=== PATIENT | male | born 1940 | race Caucasian/White ===

== ENCOUNTER 2017-04-11 10:14 | Emergency (ER) | payer MEDICARE ==
--- NOTE | 2017-04-11 11:42 | ED ---
Upper Extremity Pain - HPI Summary HPI Summary: Patient presents to the ED with CC of left hand swelling and swelling x 1 week. This has occurred before stating he had similar sxs a few months ago and was given prednisone for relief. The swelling dissipated shortly after the initiation of the steroid. He also has a history of PE recently " a few months ago" as well and placed on blood thinners. He discontinued the use of blood thinners several weeks ago stating the blood thinners were more dangerous than the blood clots and prefers not to take them. Associated history includes frostbite 4 years ago in the ipsilateral hand with loss of distal tip of index finger. He is otherwise healthy and denies smoking. He denies SOB, chest pain. He is able to squeeze the hand. Denies numbness, tingling, temperature or color changes to the area. He has attempted to take muscle relaxers without relief. - History of Current Complaint Hx Obtained From: Patient Mechanism Of Injury: Unknown Onset/Duration: Started Weeks Ago Timing: Constant Severity Initially: Moderate Severity Currently: Moderate Pain Location: Hand Character: Aching Aggravating Factor(s): Movement, Lifting, Flexion, Extension Alleviating Factor(s): Nothing Associated Signs & Symptoms: Positive: Swelling - Risk Factors Non-Orthopedic Risk Factor: Negative DVT Risk Factors: Prior PE Septic Arthritis Risk Factor: Negative <Estephania Aldridge - Last Filed: 04/11/17 13:58> <Rachelle Aguilar - Last Filed: 04/13/17 07:56> - History of Current Complaint Chief Complaint: EDExtremityUpper Stated Complaint: LEFT HAND INJURY Time Seen by Provider: 04/11/17 10:50 - Allergies/Home Medications Allergies/Adverse Reactions: Allergies Allergy/AdvReac Type Severity Reaction Status Date / Time AVOIDS ALL "NUTS" Allergy Difficulty Uncoded 06/26/16 18:53 Breathing PMH/Surg Hx/FS Hx/Imm Hx Previously Healthy: Yes Endocrine/Hematology History: Denies: Hx Diabetes Cardiovascular History: Denies: Hx Hypertension Respiratory History: Reports: Other Respiratory Problems/Disorders - DURING WINTER HAD DIFFICULTY BREATHING WITH WALKING- IMPROVED NOW History: Denies: Hx Dialysis, Hx Renal Disease Musculoskeletal History: Reports: Hx Arthritis - ANKLES Sensory History: Reports: Hx Cataracts - BILATERAL, Hx Contacts or Glasses - GLASSES, Hx Glaucoma - ??? Denies: Hx Hearing Aid Opthamlomology History: Reports: Hx Cataracts - BILATERAL, Hx Contacts or Glasses - GLASSES, Hx Glaucoma - ??? - Surgical History Surgery Procedure, Year, and Place: LEFT HAND INDEX FINGER AMUPTATION D/T FROSTBITE. HERNIA REPAIRS X 2 WHILE IN 20'S. VASECTOMY. TUMORS REMOVED FROM BACK Hx Anesthesia Reactions: No Infectious Disease History: No Infectious Disease History: Denies: Traveled Outside the [place] in Last 30 Days - Family History Known Family History: Positive: Hypertension - Social History Occupation: Retired Lives: With Family Alcohol Use: None Hx Substance Use: No Substance Use Type: Reports: None Hx Tobacco Use: Yes Smoking Status (MU): Former Smoker <Estephania Aldridge - Last Filed: 04/11/17 13:58> Review of Systems Constitutional: Negative Eyes: Negative ENT: Negative Cardiovascular: Negative Respiratory: Negative Positive: no symptoms reported, see HPI Positive: Myalgia - hand swelling Skin: Negative Neurological: Negative Psychological: Normal All Other Systems Reviewed And Are Negative: Yes <Estephania Aldridge - Last Filed: 04/11/17 13:58> Physical Exam Triage Information Reviewed: Yes Vital Signs On Initial Exam: Initial Vitals Temp Pulse Resp BP Pulse Ox 98.6 F 70 20 167/95 96 04/11/17 10:24 04/11/17 10:24 04/11/17 10:24 04/11/17 10:24 04/11/17 10:24 Vital Signs Reviewed: Yes Appearance: Positive: Well-Appearing, Well-Nourished Skin: Positive: Warm, Skin Color Reflects Adequate Perfusion Head/Face: Positive: Normal Head/Face Inspection Eyes: Positive: Normal, BRIDGER, Conjunctiva Clear Neck: Positive: Supple, No Lymphadenopathy Respiratory/Lung Sounds: Positive: Clear to Auscultation, Breath Sounds Present Cardiovascular: Positive: Normal, RRR, Pulses are Symmetrical in both Upper and Lower Extremities Musculoskeletal: Positive: Pain @ - left hand swelling with pain Neurological: Positive: Normal, Sensory/Motor Intact, Speech Normal Psychiatric: Positive: Normal - [place] Coma Scale Coma Scale Total: 15 <Estephania Aldridge - Last Filed: 04/11/17 13:58> Vital Signs On Initial Exam: Initial Vitals Temp Pulse Resp BP Pulse Ox 98.6 F 70 20 167/95 96 04/11/17 10:24 04/11/17 10:24 04/11/17 10:24 04/11/17 10:24 04/11/17 10:24 <Rachelle Aguilar - Last Filed: 04/13/17 07:56> Diagnostics - Vital Signs Vital Signs Temp Pulse Resp BP Pulse Ox 04/11/17 10:49 98.6 F 70 20 167/95 98 04/11/17 10:24 98.6 F 70 20 167/95 96 <Estephania Aldridge - Last Filed: 04/11/17 13:58> - Vital Signs Vital Signs Temp Pulse Resp BP Pulse Ox 04/11/17 14:09 98.5 F 72 20 160/86 04/11/17 10:49 98.6 F 70 20 167/95 98 04/11/17 10:24 98.6 F 70 20 167/95 96 <Rachelle Aguilar - Last Filed: 04/13/17 07:56> Course/Dx - Course Course Of Treatment: Patient evaluated for left hand swelling and pain with no acute injury. Frostbite in ipsilateral hand occurred 3 years ago with loss of distal tip of index finger. Pulses +2 bilaterally and cap refill < 2 sec. US negative for DVT. Will given Prednisone 6 days tapering dose as this has improved symptoms in the past. Will defer at this time for any xray d/t no acute injury. Medications were reveiwed with patient. Encouarged to follow up with PCP or return to ED for worsening symptoms. Return precautions given. Patient understands and agrees with plan. Ok for discharge. - Diagnoses Differential Diagnosis/HQI/PQRI: Positive: Contusion, Fracture (Closed), Strain , Sprain <Estephania Aldridge - Last Filed: 04/11/17 13:58> <Rachelle Aguilar - Last Filed: 04/13/17 07:56> - Diagnoses Provider Diagnoses: Hand swelling Discharge <Estephania Aldridge - Last Filed: 04/11/17 13:58> <Rachelle Aguilar - Last Filed: 04/13/17 07:56> - Discharge Plan Condition: Stable Disposition: HOME Prescriptions: predniSONE TAB* [Deltasone TAB*] 20 mg PO SEE INSTRUCTIONS #12 tab Referrals: Rasheed LO,Ayden Francis [Primary Care Provider] - Additional Instructions: Follow up with your PCP I have given you 6 days of Prednisone Take 3 tabs on day 1 and 2; take 2 tabs on day 3 and 4; Take 1 on day 5 and 6 Attestation Statement User Type: Provider - I was available for consult. This patient was seen by the DANYELL. The patient was not presented to, seen by, or examined by me. -Emerson <Rachelle Aguilar - Last Filed: 04/13/17 07:56>
--- NOTE | 2017-04-11 13:43 | RAD ---
HISTORY: History of clots COMPARISONS: None relevant TECHNIQUE: Multiple transverse and longitudinal ultrasound images were obtained of the left upper extremity from the level of the internal jugular vein inferiorly through to the infra-cubital veins using grayscale, color Doppler, and spectral Doppler imaging with and without compression and with augmentation. Comparison images were obtained of the contralateral internal jugular vein and subclavian vein. FINDINGS: VEINS: The venous system of the left upper extremity is compressible throughout its course, with normal flow on color Doppler imaging and normal response to augmentation on spectral Doppler imaging. SOFT TISSUES: Unremarkable. OTHER FINDINGS: None. IMPRESSION: NO LEFT UPPER EXTREMITY DEEP VEIN THROMBOSIS
[2017-04-11 14:10] VITALS: BP 160/86
== END 2017-04-11 14:09 | disposition home or self-care (01) ==
LOC: ED 10:14
DX: M79.89 Other specified soft tissue disorders (principal)
CPT/HCPCS: 99282

== ENCOUNTER 2017-05-26 19:08 | Emergency (ER) | payer MEDICARE ==
[2017-05-26 19:13] VITALS: BP 149/84
[2017-05-26] MEDS ORDERED: Tetracaine 0.5% OPTH.SOL 4 ML* 1 DROP BTL LEFT EYE ONE (20:53)
[2017-05-26] MEDS ORDERED: Polymyx/Trimethoprim OPTH* 10 ML BTL LEFT EYE ONE (21:11)
--- NOTE | 2017-05-26 21:17 | ED ---
Throat Pain/Nasal Congestion - HPI Summary HPI Summary: 76M presents with foreign body in left eye for three days. He states he was weldding and got some metal into it. He tried to flush it out and he thought it would just fall out. He states he has been having pus like drainage from his eyes. admits to photophobia. denies any change in vision. had laser surgery years ago. no fever. no sinus congestion. believes tetanus is up to date. - History of Current Complaint Chief Complaint: EDEyeProblem Time Seen by Provider: 05/26/17 20:23 - Allergies/Home Medications Allergies/Adverse Reactions: Allergies Allergy/AdvReac Type Severity Reaction Status Date / Time AVOIDS ALL "NUTS" Allergy Difficulty Uncoded 06/26/16 18:53 Breathing PMH/Surg Hx/FS Hx/Imm Hx Endocrine/Hematology History: Denies: Hx Diabetes Cardiovascular History: Denies: Hx Hypertension Respiratory History: Reports: Other Respiratory Problems/Disorders - DURING WINTER HAD DIFFICULTY BREATHING WITH WALKING- IMPROVED NOW History: Denies: Hx Dialysis, Hx Renal Disease Musculoskeletal History: Reports: Hx Arthritis - ANKLES Sensory History: Reports: Hx Cataracts - BILATERAL, Hx Contacts or Glasses - GLASSES, Hx Glaucoma - ??? Denies: Hx Hearing Aid Opthamlomology History: Reports: Hx Cataracts - BILATERAL, Hx Contacts or Glasses - GLASSES, Hx Glaucoma - ??? - Surgical History Surgery Procedure, Year, and Place: LEFT HAND INDEX FINGER AMUPTATION D/T FROSTBITE. HERNIA REPAIRS X 2 WHILE IN 20'S. VASECTOMY. TUMORS REMOVED FROM BACK Hx Anesthesia Reactions: No Infectious Disease History: No Infectious Disease History: Denies: Traveled Outside the [place] in Last 30 Days - Family History Known Family History: Positive: Hypertension - Social History Alcohol Use: None Hx Substance Use: No Substance Use Type: Reports: None Hx Tobacco Use: Yes Smoking Status (MU): Former Smoker Review of Systems Negative: Fever Positive: Photophobia, Other - foreign body in left eye Negative: Chest Pain Negative: Shortness Of Breath All Other Systems Reviewed And Are Negative: Yes Physical Exam Triage Information Reviewed: Yes Vital Signs On Initial Exam: Initial Vitals Temp Pulse Resp BP Pulse Ox 98.2 F 87 20 149/84 96 05/26/17 19:10 05/26/17 19:10 05/26/17 19:10 05/26/17 19:10 05/26/17 19:10 Vital Signs Reviewed: Yes Appearance: Positive: Well-Appearing Skin: Positive: Warm, Dry Head/Face: Positive: Normal Head/Face Inspection Eyes: Positive: EOMI, BRIDGER, Conjunctiva Inflammed, Other: - foreign body in left eye at 10 position ENT: Positive: Normal ENT inspection, Pharynx normal, TMs normal Respiratory/Lung Sounds: Positive: Clear to Auscultation, Breath Sounds Present Cardiovascular: Positive: Normal, RRR Procedures - Eye Procedure Alcaine Drops Administered: Yes - uptake at 10 position around foreign body Eye FB Removal: removal w/ cotton swab - part of foreign body Diagnostics - Vital Signs Vital Signs Temp Pulse Resp BP Pulse Ox 05/26/17 19:10 98.2 F 87 20 149/84 96 - Laboratory Lab Statement: Any lab studies that have been ordered have been reviewed, and results considered in the medical decision making process. EENT Course/Dx - Course Course Of Treatment: 76M presents with foreign body in left eye for three days. He states he was weldding and got some metal into it. He tried to flush it out and he thought it would just fall out. He states he has been having pus like drainage from his eyes. admits to photophobia. denies any change in vision. had laser surgery years ago. on exam foreign body seen at 10 position able to remove part of it with cotton swap. fluorescein exam shows uptake around object. will start on polytrim as has inject conjunctiva and pus like drainage. told to follow up with optho. patient understands and agrees with plan. - Differential Diagnoses Differential Diagnoses: Conjunctivitis, Corneal Abrasion, Foreign Body - Diagnoses Provider Diagnoses: Foreign body of left eye, Corneal abrasion Discharge - Discharge Plan Condition: Good Disposition: HOME Patient Education Materials: Eye Foreign Body (ED) Referrals: Rasheed LO,Ayden Francis [Primary Care Provider] - Montrell Gonzalez MD [Medical Doctor] - Additional Instructions: Place 1 drop in eye 4 times a day for 5 days Use artificial tears or saline to rinse eye for symptomatic relief Take Tylenol or ibuprofen for pain Follow up with ophthalmology, call office tomorrow as need foreign body removed Return to ED if develop any new or worsening symptoms
== END 2017-05-26 21:31 | disposition home or self-care (01) ==
LOC: ED 19:08
DX: T15.92XA Foreign body on external eye, part unspecified, left eye, initial encounter (principal); X58.XXXA Exposure to other specified factors, initial encounter; Y92.9 Unspecified place or not applicable; Z87.891 Personal history of nicotine dependence; S05.02XA Injury of conjunctiva and corneal abrasion without foreign body, left eye, initial encounter
CPT/HCPCS: 99281; A9270-GY

== ENCOUNTER 2017-09-29 06:39 | Inpatient (IN) | payer MEDICARE ==
--- NOTE | 2017-09-16 15:19 | HP ---
AMENDED REPORT NOW INCLUDES COSIGNER DESIGNATION - ESIGNED BEFORE ADJUSTMENT HISTORY AND PHYSICAL: DATE OF OFFICE VISIT: 09/16/17 DATE OF SURGERY: 09/29/17 SURGEON: Lashawn Palmer MD * (DICTATED BY TORI SHIN) PROCEDURE: Right total knee arthroplasty. CHIEF COMPLAINT: Right knee pain. HISTORY OF PRESENT ILLNESS: Mr. Kc is a 77-year-old gentleman with endstage osteoarthritis of the right knee. He has failed conservative management and elected to proceed with a right total knee arthroplasty, which is scheduled for 09/29/[address] Palmer. PAST MEDICAL HISTORY: COPD and hypertension. PAST SURGICAL HISTORY: Tonsillectomy, amputation of DIP joint of the left index finger, spinal surgery, unknown hernia repair and a growth removal from his penis. MEDICATIONS: 1. Tramadol. 2. Symbicort. 3. Spiriva inhaler. 4. PreserVision AREDS. 5. Gabapentin. 6. Albuterol. 7. Lisinopril. 8. Clobetasol cream. ALLERGIES: None. FAMILY HISTORY: Coronary artery disease, cancer. SOCIAL HISTORY: He is a 77-year-old, lives with his daughter. He does not smoke, use drugs or alcohol. REVIEW OF SYSTEMS: A complete 14-point review of systems was reviewed with the patient and it was positive for shortness of breath, asthma, COPD and a history of DVT following a spinal surgery 2 years ago. PHYSICAL EXAMINATION GENERAL: Well developed, well nourished in no acute distress. VITAL SIGNS: He stands 6 feet 4 inches tall, weight 248 pounds, blood pressure 138/81, heart rate is 74. HEENT: Normocephalic, atraumatic. NECK: Supple. No palpable lymph nodes. PULMONARY: Lungs are clear to auscultation bilaterally. CARDIO: Regular rate and rhythm. Strong S1 and S2. ABDOMEN: Soft, nontender, nondistended. NEUROLOGIC: Alert and oriented x3. Cranial nerves II through XII are intact. MUSCULOSKELETAL: Right lower extremity, skin is intact. There are no open wounds or abrasions. He has tenderness over the medial and lateral joint lines. No valgus deformity. 2+ dorsalis pedis pulses. He has intact sensation in his lower extremities. Muscular group strength is intact 5/5. ASSESSMENT AND PLAN: Mr. Kc is a 77-year-old gentleman with end-stage osteoarthritis of the right knee. He has failed conservative management and elected to proceed with a right total knee arthroplasty, which is scheduled for 09/29/[address] Palmer discussed the risks and benefits of the surgery on today's visit. All of his questions are answered. Coumadin, Colace and Percocet were sent to his pharmacy for postoperative pain control and DVT prophylaxis. He will see Dr. Palmer back in in 2 weeks after the surgery. TORI SHIN [id number]/[facility] [place] #: [id number] NED
[~2017-09-29 06:39] MED LIST: Acetaminophen IV 1GM/100ML * 1,000 MG/100 ML VIAL IVPB ONE; Buffered Lidocaine 0.9% SYRIN* 5 ML/SYR SYRINGE INTRADERM ONE; Dexamethasone IV* 4 MG/ML 1 ML (4 MG) IV SLOW PU ONE; Famotidine IV* 10 MG/ML 2 ML (20 mg) IV ONE; Gabapentin CAP(*) 300 MG PO ONE; Levalbuterol 0.63MG/3ML NEB* UNIT OF USE INH ONE
[2017-09-29] MEDS ORDERED: Famotidine IV* 10 MG/ML 2 ML (20 mg) ONE (12:23)
[2017-09-29] MEDS ORDERED: Gabapentin CAP(*) 300 MG ONE (12:23)
[2017-09-29] MEDS ORDERED: Dexamethasone IV* 4 MG/ML 1 ML (4 MG) ONE (12:23)
[2017-09-29] MEDS ORDERED: Levalbuterol 1.25MG/0.5ML NEB ONE (12:24)
[2017-09-29] MEDS ORDERED: ceFAZolin 2 GM PREMIX (*) 2 GM/50 ML BAG IVPB ONE (12:24)
[2017-09-29] MEDS ORDERED: Buffered Lidocaine 0.9% SYRIN* 5 ML/SYR SYRINGE ONE (12:24)
[2017-09-29] MEDS ORDERED: Acetaminophen IV 1GM/100ML * 100 ML ONE (14:08)
[2017-09-29] MEDS ORDERED: fentaNYL* 50 MCG/ML 2 ML VIAL (100 MCG VIAL) ONE (14:53)
[2017-09-29] MEDS ORDERED: KETAMINE HCL* 50 MG/ML 10 ML VIAL ONE (14:53)
[2017-09-29] MEDS ORDERED: Midazolam* 1 MG/ML 10 ML VIAL (10 MG) ONE (14:53)
[2017-09-29] MEDS ORDERED: ROPIVACAINE 5 MG/ML 30 ML BTL (0.5%) ONE (14:55)
[2017-09-29] MEDS ORDERED: Ondansetron INJ* 2 MG/ML VIAL ONE (16:15)
[2017-09-29] MEDS ORDERED: Propofol* 10 MG/ML 20 ML BTL IV PUSH ONE (16:15)
[2017-09-29] MEDS ORDERED: Bupivacaine 0.5% SDV PF* 10-30ML VIAL ONE ×2 (16:15→17:35)
[2017-09-29] MEDS ORDERED: HYDROmorphone INJ* 1 MG/ML CARPUJECT SYRINGE IV PRN (16:21)
[2017-09-29] MEDS ORDERED: oxyCODONE TAB* 5 MG TAB PO PRN (16:21)
[2017-09-29] MEDS ORDERED: Naloxone* 0.4 MG/ML 1 ML VIAL IV PRN (16:21)
[2017-09-29] MEDS ORDERED: DiMENhydriNATE IV* 50 MG/ML VIAL IV PUSH PRN (16:21)
[2017-09-29] MEDS ORDERED: fentaNYL* 50 MCG/ML 2 ML VIAL (100 MCG VIAL) IV PRN (16:21)
[2017-09-29] MEDS ORDERED: Ondansetron INJ* 2 MG/ML VIAL IV PRN (16:21)
[2017-09-29] MEDS ORDERED: oxyCODONE/Acetamin 5/325 MG* TAB PO PRN (16:27)
[2017-09-29] MEDS ORDERED: Morphine INJ* 2 MG/ML 1 ML CARPUJECT IV PRN (16:27)
[2017-09-29] MEDS ORDERED: Cyclobenzaprine TAB* 10 MG PO PRN (16:27)
[2017-09-29] MEDS ORDERED: Morphine INJ* 4 MG/ML 1 ML CARPUJECT IV PRN (16:27)
[2017-09-29] MEDS ORDERED: Docusate CAP* 100 MG PO PRN (16:27)
[2017-09-29] MEDS ORDERED: Bisacodyl SUPP* 10 MG SUPP PR PRN (16:27)
[2017-09-29] MEDS ORDERED: diPHENhydraMINE IV* 50 MG/ML 1 ml VIAL (BENADRYL) IV PRN (16:27)
[2017-09-29] MEDS ORDERED: Albuterol HFA INHALER* 8 gm MDI INH PRN (16:39)
[2017-09-29] MEDS ORDERED: Ketorolac INJ* 30 MG/ML 1 ML VIAL ONE (17:10)
[2017-09-29] MEDS ORDERED: Bupivacaine 0.25% SDV* 30 ML ONE (17:36)
[2017-09-29] MEDS ORDERED: Mometasone/Formoter 200/5 MDI INH SCH (18:00)
--- NOTE | 2017-09-29 19:37 | RAD ---
HISTORY: Status post right knee arthroplasty COMPARISONS: September 16, 2017 VIEWS: 2, Frontal and lateral views of the right knee FINDINGS: BONE DENSITY: Normal. BONES: The patient is status post right knee arthroplasty. There is no hardware failure or osteolysis. JOINTS: The patient is status post right knee arthroplasty. ALIGNMENT: There is no dislocation. SOFT TISSUES: There is post surgical change to the soft tissue. OTHER FINDINGS: None. IMPRESSION: STATUS POST RIGHT KNEE ARTHROPLASTY
[2017-09-29] MEDS ORDERED: Gabapentin CAP(*) 300 MG PO SCH (21:00)
[2017-09-29] MEDS ORDERED: Warfarin TAB(*) 6 MG PO ONE (21:00)
[2017-09-29] MEDS: oxyCODONE/Acetamin 5/325 MG* TAB PO PRN (21:34)
[2017-09-29] MEDS: Magnesium Hydroxide LIQ* 30 ML UDC PO SCH (21:35)
[2017-09-30] MEDS: ceFAZolin 1 GM in Dextrose (*) 1 GM/50 ML BAG IVPB SCH ×3 (00:54→14:57)
[2017-09-30] MEDS: oxyCODONE TAB* 5 MG TAB PO PRN ×2 (04:08→15:04)
[2017-09-30 06:10] LABS: Hematocrit 37 % (42-52); Hemoglobin 12.3 g/dl (14.0-18.0); Mean Platelet Volume 9 um3 (7.4-10.4); Platelet Count 181 10^3/ul (150-450)
[2017-09-30 06:22] LABS: INR 1.03 (0.77-1.02)
[2017-09-30 06:33] LABS: EGFR Non-African American 83.5 (>60)
--- NOTE | 2017-09-30 07:35 | CONS ---
[facility] MEDICINE CONSULTATION REPORT: DATE OF CONSULT: 09/29/17 PROVIDER: Liliam Granda NP. ATTENDING PHYSICIAN: Dr. Palmer. CONSULTING PHYSICIAN: Dr. Anita Black (dictation provided by Liliam Granda NP). REASON FOR CONSULT: Medical management of hypertension and COPD. HISTORY OF PRESENT ILLNESS: Mr. Kc is a 77-year-old gentleman with endstage osteoarthritis of the right knee. He has failed outpatient conservative management and elected to proceed with a right total knee arthroplasty, which was scheduled for 09/29/[address] Palmer. The patient states that he was doing well. He has no complaints at this time in the postoperative period. He reports that prior to coming in to surgery, he was in his normal state of health. He denied any nausea, vomiting, or diarrhea. He denied any fever or chills. Denied any recent cough or shortness of breath. Denied any recent sick contacts or recent lung infection. PAST MEDICAL HISTORY: 1. Hypertension. 2. COPD. PAST SURGICAL HISTORY: 1. Tonsillectomy. 2. Amputation of the DIP joint of the left index finger. 3. Spinal surgery. 4. Hernia repair. MEDICATIONS: Outpatient medications are: 1. Tramadol. 2. Symbicort 160/4.5. 3. Spiriva 1 cap q.a.m. 4. PreserVision. 5. Gabapentin. 6. Albuterol HFA inhaler 1 to 2 puffs every 4 hours as needed for shortness of breath. 7. Lisinopril 10 mg p.o. q.a.m. 8. Multivitamin 1 p.o. daily. ALLERGIES: He reports an allergy to WALNUTS. No known drug allergies. FAMILY HISTORY: He states his father had a heart attack and also his brother had a heart attack with open heart surgery. He denies any history of diabetes in the family. He does state that he had a brother that had cancer and did from the cancer, unknown type of cancer. SOCIAL HISTORY: The patient is a former smoker. He quit smoking 30 years ago, prior to that he smoked 3 packs a day for approximately 15 years. He states that he use to drink a 6-pack of alcohol daily, but he quit drinking 30 years ago. He denies any drug use. He is a retired production editor. He lives with his daughter. REVIEW OF SYSTEMS: General: Denies fevers, chills, or unintended weight loss. Cardiac: No chest pain or edema. Respiratory: No cough or congestion. No shortness of breath. GI: No nausea, vomiting, or diarrhea. Denies any abdominal pain. : No gross hematuria or dysuria. Neuro: No focal weakness or sensory losses. Eyes: No visual complaints. ENT: No dysphagia. Musculoskeletal: Denies any arthralgias or myalgias. Skin: No rashes or lesions. Psych: No depression or anxiety. PHYSICAL EXAM: Vital Signs: Are as follows, temp was 97.4, heart rate was 65, respirations 18, O2 saturation was 97% on room air, blood pressure 143/67. General: Mr. Kc is sitting in the bed. He has no acute distress. Neuro : He is alert and oriented x3. He moves all extremities. There is no facial asymmetry or focal weakness noted. Extraocular eye movements are intact. Heart : S1, S2. No murmurs, rubs, or gallops and regular rate. Lungs: Clear to auscultation bilaterally. No accessory muscle use and good aeration is noted. Abdomen: Soft and nontender. Bowel sounds are positive x4. Extremities: No cyanosis or edema. Pedal pulses are +2 bilaterally. Dressing is intact to his right knee. He does have a Hemovac also to his right knee. Skin: Intact. DIAGNOSTIC STUDIES/LAB DATA: Preoperatively laboratory data, on 09/21/17, his WBC were 5.9, RBC 5.32, hemoglobin was 14.7, hematocrit was 45, platelet count was 196. His INR on 09/21/17 was 0.94, a PTT was 29.0. On 09/21/17, his sodium was 138, potassium was 4.4, chloride 105, BUN was 15, creatinine 0.86, glucose was 86, lactic acid was 0.7, calcium 9.7. AST were 18 , ALT were 17. Urine from 09/21/17, was clear, pH was 5, specific gravity was 1.025, urine protein, ketones, blood, nitrites, urine bilirubin, urine leukocyte esterase and glucose were all negative. Urine ascorbic acid was also negative. He had an x-ray of the knee on 09/29/17, status post right knee arthroplasty with radiologist's impression. IMPRESSION AND PLAN: Mr. Kc is a 77-year-old male with past medical history significant for chronic obstructive pulmonary disease and hypertension. In the immediate postoperative period, he has no complaints and is doing well. Our recommendations are as follows: 1. Status post right total knee arthroplasty, management per Orthopedics. 2. Hypertension. Stable~ I recommend that he continue his lisinopril 10 mg p.o. daily and hold for systolic blood pressure less than 100. 3. Chronic obstructive pulmonary disease. Stable~ I recommend that he continue his home management with Spiriva and Symbicort and albuterol inhaler as needed. 4. DVT prophylaxis per Orthopedics. 5. Code status: He is a full code. 6. FEN: He can continue a heart-healthy diet, caffeine is okay. TIME SPENT: Approximately 45 minutes was spent on this consultation of this patient, more than half that time was spent with the patient at the bedside reviewing the events leading to the hospitalization and performing physical exam , and reviewing my plan of care. Thank you for this consultation and we will sign off, please contact us if any further management is needed of his hypertension or COPD. LILIAM GRANDA, LUZMA [id number]/[facility] #: [id number] NED
[2017-09-30] MEDS: oxyCODONE/Acetamin 5/325 MG* TAB PO PRN ×2 (07:49→12:25)
[2017-09-30] MEDS: Magnesium Hydroxide LIQ* 30 ML UDC PO SCH (07:49)
--- NOTE | 2017-09-30 08:49 | PN ---
Progress Note - Progress Note Date of Service: 09/30/17 SOAP: Subjective: 77 y.o male s/p right TKA by DR. Palmer 09/29. Patient reports feeling well, no complaints, would like D/C today if possible. VSS, afebrile. Objective: General- Well appearing, NAD, AO MSK- Dressing c/d/i, no drainage noted, SITLT b/l LEs, DF/PF intact. PT 2+ Active Medications Generic Name Dose Route Start Last Admin Trade Name Freq PRN Reason Stop Dose Admin Albuterol 2 puff 09/29/17 16:39 Ventolin Hfa Inhaler* INH Q4H PRN SOB/WHEEZING Bisacodyl 10 mg 09/29/17 16:27 Dulcolax Supp* IN DAILY PRN constipation Cyclobenzaprine HCl 10 mg 09/29/17 16:27 Flexeril Tab* PO TID PRN SPASMS Diphenhydramine HCl 25 mg 09/29/17 16:27 Benadryl Iv* IV Q6H PRN itching Docusate Sodium 100 mg 09/29/17 16:27 Colace Cap* PO BID PRN CONSTIPATION Enoxaparin Sodium 30 mg 09/30/17 17:00 Lovenox(*) SUBCUT Q24H MARYLIN Gabapentin 300 mg 09/29/17 21:00 09/29/17 21:33 Neurontin Cap(*) PO 300 mg BEDTIME MARYLIN Administration Cefazolin Sodium/Dextrose 1 gm in 50 mls @ 200 mls/hr 09/30/17 00:00 07:50 Kefzol 1 Gm In Dextrose Duplex (*) IVPB 09/30/17 16:14 200 mls/hr Q8H MARYLIN Administration Lactated Ringer's 1,000 mls @ 100 mls/hr 09/29/17 17:00 09/30/17 06:58 Lactated Ringers 1000 Ml Bag* IV 100 mls/hr PER RATE MARYLIN Administration Lisinopril 10 mg 09/30/17 09:00 09/30/17 07:50 Prinivil Tab* PO 10 mg QAM MARYLIN Administration Magnesium Hydroxide 30 ml 09/29/17 21:00 09/30/17 07:49 Milk Of Magnesia Liq* PO 30 ml BID MARYLIN Administration Mometasone Furoate/Formoterol Fumar 1 puff 09/29/17 18:00 09/29/17 21:26 Dulera 200/5 Mdi* INH Not Given QPM MARYLIN Morphine Sulfate 2 mg 09/29/17 16:27 Morphine Inj (Syringe)* IV Q2H PRN PAIN - BREAKTHROUGH Morphine Sulfate 4 mg 09/29/17 16:27 Morphine Inj (Syringe)* IV Q2H PRN PAIN - UNCONTROLLED Naloxone HCl 0.08 mg 09/29/17 16:21 Narcan* IV 09/30/17 16:20 Q2M PRN severe induced resp depression Oxycodone HCl 10 mg 09/29/17 16:27 09/30/17 04:08 Roxycodone Tab* PO 10 mg Q4H PRN Administration PAIN - SEVERE Oxycodone/Acetaminophen 2 tab 09/29/17 16:27 09/30/17 12:25 Percocet 5/325 Tab* PO 2 tab Q4H PRN Administration PAIN - MODERATE Oxycodone/Acetaminophen 1 tab 09/29/17 16:27 Percocet 5/325 Tab* PO Q4H PRN PAIN - MILD Pharmacy Profile Note 0 note 09/30/17 17:00 Coumadin Daily Reminder* FOLLOW UP 1700 [facility] Tiotropium [place] 1 cap 09/30/17 09:00 09/30/17 07:49 Spiriva Cap.Inh* INH 1 cap QAM MARYLIN Administration Warfarin Sodium 8 mg 09/30/17 17:00 Coumadin Tab(*) PO 09/30/17 17:01 ONCE@1700 ONE Protocol Assessment: Stable 77 y.o male s/p right TKA by DR. Palmer 09/29. Plan: - DVT prophylaxis- coumadin, lovenox. - Continue PT/ OT - Follow up with Dr. Palmer within 10-14 days. Vital Signs Temp 97.8 F 09/30/17 11:24 Pulse 81 09/30/17 11:24 Resp 16 09/30/17 12:26 BP 125/64 09/30/17 11:24 Pulse Ox 96 09/30/17 11:24 Intake & Output 09/29/17 09/30/17 09/30/17 18:59 06:59 18:59 Intake Total 2150 2480 1573 Output Total 500 1025 300 Balance 1650 1455 1273 Weight 66.224 kg Intake: IV Fluids 2150 100 1348 ABX - CEFAZOLIN 58 LR 2100 100 1290 NS 50ML, Cefazolin 2G 50 Oral 2380 225 Output: Miles 500 1025 300 Other: Estimated Blood Loss MINIMAL Comment
[2017-09-30] MEDS ORDERED: Spiriva Inhaler DEVICE* 1 EACH DEVICE INH ONE (09:00)
[2017-09-30] MEDS ORDERED: Tiotropium CAP.INH* CAP.INH/18 MCG (USE ORDER SET !) INH SCH (09:00)
[2017-09-30] MEDS ORDERED: Lisinopril TAB* 10 MG PO SCH (09:00)
[2017-09-30 11:32] VITALS: BP 125/64
[2017-09-30] MEDS ORDERED: Enoxaparin(*) 30 MG/0.3 ML SYR SUBCUT SCH (17:00)
[2017-09-30] MEDS ORDERED: Warfarin TAB(*) 4 MG PO ONE (17:00)
--- NOTE | 2017-10-01 05:42 | OP ---
OPERATIVE NOTE: DATE OF OPERATION: 09/29/17 DATE OF : 36 ATTENDING SURGEON: Lashawn Palmer MD MACHINIST AUTOMOTIVE: TORI Beasley Mr. Romo did help throughout the procedure with preparation of the leg, wound retraction, manipulation of the knee, and would closure. ANESTHESIOLOGIST: Dr. Neves ANESTHESIA: Spinal. 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 OPERATIVE PROCEDURE: Right total knee arthroplasty. TOURNIQUET TIME: 54 minutes. COMPLICATIONS: None. SPECIMEN: Bone and cartilage from the right knee joint sent to Pathology. ESTIMATED BLOOD LOSS: 300 cc. HARDWARE USED: [employer] cemented total knee arthroplasty hardware. Two packages of Simplex bone cement were used. For the femur, a size 8 right Legion posterior stabilized femoral component. For the tibia, size 5 right tibial base plate Brittany II. For the insert, a 9-mm constrained articular insert, size 7/8. For the patella, a 35-mm 3-peg all poly patella. BRIEF HISTORY/INDICATION: Mr. Kc is a 77-year-old gentleman with years of increasingly severe right knee pain and valgus deformity. He failed conservative treatment with antiinflammatories, pain medication, intraarticular injection, and home exercise program. Radiographs showed severe end-stage arthritis with bone-on- bone contact with valgus deformity. The patient elected to undergo a right total knee arthroplasty due to continued pain and decreased quality of life. Informed consent was reviewed with the patient. He understood the risks of the surgery included but were not limited to bleeding, infection, damage to nearby structures, continued pain, need for further surgery , intraoperative fracture, nerve palsy, hardware failure or loosening, knee stiffness, loss of motion, stroke, heart attack, blood clot, and . He wished to proceed. INTRAOPERATIVE FINDINGS: Intraoperatively, the patient was noted to have flexion contracture of 10 degrees to start the case and valgus deformity of 15 degrees with MCL laxity. He had lateral femoral condylar hypoplasia. He had tricompartmental loss of cartilage. DESCRIPTION OF PROCEDURE: Mr. Kc was identified in the preanesthesia unit. His right lower extremity was marked as the correct operative site. Informed consent was signed and placed in the chart. The patient was taken to the operating room and placed under spinal anesthesia. A Miles catheter was placed. Tourniquet was placed on the right thigh. Right lower extremity was prepped and draped in the usual sterile fashion. Preop time-out was made to correctly identify the patient, side, and site. Appropriate perioperative antibiotics were given within 1 hour of incision. A 12-cm midline incision was made with a 10-blade and carried down to the extensor mechanism. A new 10-blade was used to make a standard medial parapatellar arthrotomy. Patella was subluxed laterally. Electrocautery was used to subperiosteally elevate the soft tissue off the superomedial tibia to the mid sagittal plane. The knee was flexed up. There was no anterior horn of the lateral meniscus. ACL was sharply released. A drill was used to enter the distal femur. Intramedullary distal femoral cutting guide was pinned onto distal distal femur. Oscillating saw was used to make the distal femoral cut. Next, the external rotation guide was placed on the distal femur and the femur was sized to a size 8. Size 8 multi-cutting jig was pinned on the distal femur. The oscillating saw was used to make the appropriate 4 chamfer cut. Rest of the tibia was subluxed anteriorly and the PCL was released. Extramedullary tibial cutting guide was pinned on the proximal tibia. Oscillating saw was used to make the proximal tibial cut perpendicular to the mechanical axis of the tibia. Bone was carefully removed. The knee was brought out into full extension and the spacer block was tight laterally. Preoperative MCL laxity was noted. A 15-blade was used with a pie-crusting technique to conservatively release some lateral ligament. Electrocautery was used to release posterolateral capsule. Any lateral osteophytes were carefully removed. Medial and lateral ligamentous balancing was improved, although the MCL laxity remained. The knee was flexed up. Lamina patient transition specialist was placed both medially and laterally. Any remaining meniscus was carefully removed using electrocautery. Posterior osteophytes were removed with a curved osteotome. Tibial tray and drop lazaro confirmed the satisfactory and tibial cut. A size 8 right femoral trial was impacted on to the femur. This had excellent fit. The box for the posterior stabilized implant was prepared using a reamer and box cut osteotome. Size 8 tibial tray trial with a 9-mm insert trial was placed. The knee was taken through range of motion. The knee had full extension to 130 degrees of flexion with satisfactory patellofemoral tracking. Patella was everted. 9-mm of patellar bony cartilage was carefully removed using an oscillating saw. Patella was sized to a size 35. 35 trial patella was placed and the knee was taken through range of motion. Patellofemoral tracking was satisfactory. All trials were removed. Tibia was subluxed anteriorly and sized to a size 8. Proximal tibia was prepared using a size 8 keel punch. All bony cut surfaces were copiously irrigated with sterile saline and dried. Final implants were cemented into place starting with the tibia, followed by the femur, and last the patella. A 9-mm insert trial was placed while the knee was brought out into full extension. Tourniquet was turned down at 54 minutes. Electrocautery was used to obtain meticulous hemostasis. The knee was copiously irrigated with sterile saline. Once the cement had fully cured, the insert trial was removed. Any excess cement was removed from around the capsule and hardware. Final implant chosen was a 9-mm constrained articular insert, size 7/8. This was locked into position on the tibial tray without difficulty. Stability of the insert was checked and rechecked and noted to be stable. The extensor mechanism was closed over a medium Hemovac drain using interrupted #1 Vicryls. The rest of the incision was closed in a layered fashion using 0 and 2-0 Vicryls. Skin was closed using running 3-0 nylon suture. Sterile Xeroform, 4x4s, and Webril were used to cover the incision. Prabhakar wrap and cold pack were placed over this. The patient's anesthesia was reversed without difficulty. He was taken to the PACU in stable condition. Intended weightbearing will be weightbearing as tolerated. Intended DVT prophylaxis will be Coumadin with a Lovenox bridge. [id number]/[facility] #: [id number] [facility]
== END 2017-09-30 15:55 | disposition home health service (06) | DRG 470 ==
LOC: AA 12:10 → SSU 20:16
PROVIDERS: ADMIT Orthopaedic Surgery Adult Reconstructive Orthopaedic Surgery; ATTEND Orthopaedic Surgery Adult Reconstructive Orthopaedic Surgery
PROC: 0SRC0J9 Replacement of Right Knee Joint with Synthetic Substitute, Cemented, Open Approach (ICD-10-PCS; principal; 2017-09-29 15:00)
DX: M17.11 Unilateral primary osteoarthritis, right knee (principal); J44.9 Chronic obstructive pulmonary disease, unspecified; I45.2 Bifascicular block; I10 Essential (primary) hypertension; M21.061 Valgus deformity, not elsewhere classified, right knee; M24.561 Contracture, right knee; M25.761 Osteophyte, right knee; Z89.022 Acquired absence of left finger(s); Z80.9 Family history of malignant neoplasm, unspecified; Z82.49 Family history of ischemic heart disease and other diseases of the circulatory system; Z86.718 Personal history of other venous thrombosis and embolism; Z91.018 Allergy to other foods; Z87.891 Personal history of nicotine dependence; Q74.2 Other congenital malformations of lower limb(s), including pelvic girdle
CPT/HCPCS: 36415; 80048; 85014; 85018; 85049; 85610; A9270-GY; C1776; J0690; J1100; J1885; J2250; J2405; J2704; J2795; J3010

== ENCOUNTER 2020-10-06 14:39 | Observation (INO) ==
[2020-10-06 15:24] LABS: ABS Eosinophils 0.1 10^3/ul (0-0.6); ABS Lymphocytes 1.4 10^3/ul (1.0-4.8); ABS Monocytes 0.7 10^3/ul (0-0.8); ABS Neutrophils 5.1 10^3/ul (1.5-7.7); Eosinophil % 1.7 %; Hematocrit 43 % (42-52); Hemoglobin 14.3 g/dL (14.0-18.0); Lymphocyte % 18.6 %; Mean Corpuscular HGB Conc 34 g/dL (31-36); Mean Corpuscular Hemoglobin 28 pg (27-31); Mean Corpuscular Volume 85 fL (80-94); Mean Platelet Volume 8.6 fL (7.4-10.4); Platelet Count 198 10^3/uL (150-450); Red Blood Count 5.03 10^6 /uL (4.18-5.48); Red Cell Distribution Width 14 % (10-15); White Blood Count 7.3 10^3/uL (3.5-10.8)
[2020-10-06 15:37] LABS: INR 1.13 (0.82-1.09)
[2020-10-06 15:42] LABS: Calcium 9.4 mg/dL (8.6-10.3); Potassium 3.7 mmol/L (3.5-5.0); Total Bilirubin 0.6 mg/dL (0.2-1.0)
[2020-10-06 15:48] LABS: Albumin/Globulin Ratio 1.6 (1-3); BUN/Creatinine Ratio 12.5 (8-20); C Reactive Protein 2.35 mg/L (<8.01); EGFR African American 90.7 (>60); Globulin 2.5 g/dL (2-4); Total Protein 6.5 g/dL (6.4-8.9)
[2020-10-06 16:07] LABS: Urine Appearance Clear; Urine Bilirubin Negative (Negative); Urine Blood Negative (Negative); Urine Color Yellow; Urine Glucose Negative (Negative); Urine Ketones Negative (Negative); Urine Nitrite Negative (Negative); Urine Protein Negative (Negative); Urine Specific Gravity 1.011 (1.010-1.030); Urine Urobilinogen Negative (Negative)
[2020-10-06 16:19] LABS: Urine Bacteria 1+ (Absent); Urine Red Blood Cell Trace(0-2/hpf) (Absent); Urine White Blood Cell Trace(0-5/hpf) (Absent)
[2020-10-06] MEDS ORDERED: metroNIDAZOLE IV 500 MG/100ML 500 MG/100 ML BAG IVPB ONE (16:59)
[2020-10-06] MEDS ORDERED: Ondansetron 4 mg VIAL 2 MG/ML 2 ml VIAL IV PRN (17:43)
[2020-10-06] MEDS ORDERED: Albuterol HFA INHALER 8 gm MDI INH PRN (17:48)
[2020-10-06] MEDS: Cefepime 1 GM in Dextrose 1 GM/50 ML BAG IV SCH (22:45)
[2020-10-07] MEDS: Mometasone/Formoter 100/5 MDI INH SCH ×3 (00:11→19:26)
[2020-10-07] MEDS: metroNIDAZOLE IV 500 MG/100ML 500 MG/100 ML BAG IVPB SCH ×3 (01:51→17:16)
[2020-10-07 06:13] LABS: ABS Eosinophils 0.2 10^3/ul (0-0.6); ABS Lymphocytes 1.6 10^3/ul (1.0-4.8); ABS Monocytes 0.6 10^3/ul (0-0.8); ABS Neutrophils 3.8 10^3/ul (1.5-7.7); Eosinophil % 3.7 %; Hematocrit 40 % (42-52); Hemoglobin 12.9 g/dL (14.0-18.0); Mean Corpuscular HGB Conc 33 g/dL (31-36); Mean Corpuscular Hemoglobin 28 pg (27-31); Mean Corpuscular Volume 85 fL (80-94); Mean Platelet Volume 9.3 fL (7.4-10.4); Nucleated Red Blood Cells % 0.1; Platelet Count 183 10^3/uL (150-450); Red Blood Count 4.64 10^6 /uL (4.18-5.48); Red Cell Distribution Width 14 % (10-15); White Blood Count 6.2 10^3/uL (3.5-10.8)
[2020-10-07 06:28] LABS: Calcium 9.2 mg/dL (8.6-10.3); Magnesium 1.9 mg/dL (1.9-2.7)
[2020-10-07 06:34] LABS: BUN/Creatinine Ratio 10.1 (8-20); EGFR African American 87.6 (>60); EGFR Non-African American 72.4 (>60)
[2020-10-07] MEDS: SPIRIVA Respimat (tiotropium) 2.5 mcg/inh Inhaler INH SCH (07:14)
[2020-10-07] MEDS: Cefepime 1 GM in Dextrose 1 GM/50 ML BAG IV SCH ×2 (10:15→21:02)
[2020-10-07] MEDS ORDERED: fentaNYL 100 mcg/2 ml 50 MCG/ML VIAL ONE (10:40)
[2020-10-07] MEDS ORDERED: Midazolam 10 mg/10 ml VIAL 1 mg/ml 10 ml VIAL (10 mg) ONE (10:40)
[2020-10-07] MEDS: Polyethylene Glycol 3350 17 GM PACKET PO SCH ×2 (13:46→21:02)
[2020-10-08] MEDS: metroNIDAZOLE IV 500 MG/100ML 500 MG/100 ML BAG IVPB SCH ×2 (02:09→10:54)
[2020-10-08 05:56] LABS: ABS Eosinophils 0.3 10^3/ul (0-0.6); ABS Lymphocytes 1.4 10^3/ul (1.0-4.8); ABS Monocytes 0.6 10^3/ul (0-0.8); Eosinophil % 5.6 %; Hematocrit 39 % (42-52); Hemoglobin 13.2 g/dL (14.0-18.0); Mean Corpuscular HGB Conc 34 g/dL (31-36); Mean Corpuscular Hemoglobin 28 pg (27-31); Mean Corpuscular Volume 84 fL (80-94); Mean Platelet Volume 8.8 fL (7.4-10.4); Platelet Count 184 10^3/uL (150-450); Red Blood Count 4.66 10^6 /uL (4.18-5.48); Red Cell Distribution Width 14 % (10-15); White Blood Count 5.2 10^3/uL (3.5-10.8)
[2020-10-08 06:14] LABS: BUN/Creatinine Ratio 12.1 (8-20); Calcium 9.1 mg/dL (8.6-10.3); EGFR African American 96.5 (>60); EGFR Non-African American 79.8 (>60); Potassium 4.2 mmol/L (3.5-5.0)
[2020-10-08] MEDS: Cefepime 1 GM in Dextrose 1 GM/50 ML BAG IV SCH (07:32)
[2020-10-08] MEDS: Polyethylene Glycol 3350 17 GM PACKET PO SCH (07:32)
[2020-10-08] MEDS: Mometasone/Formoter 100/5 MDI INH SCH (07:34)
[2020-10-08] MEDS: SPIRIVA Respimat (tiotropium) 2.5 mcg/inh Inhaler INH SCH (07:36)
[2020-10-08] MEDS ORDERED: Polyethylene Glycol 3350 17 GM PACKET PO SCH (14:08)
[2020-10-08 14:18] LABS: C Reactive Protein 12.26 mg/L (<8.01)
[2020-10-08 16:06] VITALS: BP 128/70
[2020-10-10 00:13] LABS: Vitamin K Level 0.08 ng/mL (0.10-2.20)
== END 2020-10-08 16:15 | disposition home or self-care (01) ==
LOC: ED 14:39 → MED 14:39
PROVIDERS: ADMIT Internal Medicine; ATTEND Internal Medicine